=== PATIENT | female | born 1985 | race African-American/Black ===

== ENCOUNTER 2017-10-31 17:55 | Emergency (ER) | payer SELFPAY ==
[~2017-10-31] VITALS: Ht 157.5 cm; Wt 81.6 kg
[2017-10-31] MEDS ORDERED: TETRACAINE HCL 0.5% OPTH SOLN 4 ML BTL OP ONE (19:00)
[2017-10-31] MEDS ORDERED: FLUORESCEIN SOD(OPTH) 1 MG STRP OP ONE (19:00)
[2017-10-31] MEDS ORDERED: ERYTHROMYCIN (OPTH) 3.5 GM OINT OP ONE (20:30)
[2017-10-31 21:34] VITALS: BP 124/72
== END 2017-10-31 22:26 | disposition home or self-care (01) ==
LOC: ER 17:55
DX: H57.11 Ocular pain, right eye (principal); S05.01XA Injury of conjunctiva and corneal abrasion without foreign body, right eye, initial encounter; H18.821 Corneal disorder due to contact lens, right eye; Z33.1 Pregnant state, incidental
CPT/HCPCS: 99284